=== PATIENT | male | born 1945 | race Caucasian/White ===

== ENCOUNTER 2016-09-28 05:54 | Observation (INO) | payer MEDICARE ==
[~2016-09-28] VITALS: Ht 180.3 cm; Wt 104.1 kg
--- NOTE | ~2016-09-28 | OR ---
PATIENT'S NAME: DAVID ROMAN [facility] AGE: 71 Y [address] ROOM: [address] [address] LOCATION: [facility] ADMIT DATE: 09/28/2016 OR/Procedure Report DISCHARGE DATE: 09/30/2016 FAMILY PHYSICIAN: Mildred Espino ATTENDING PHYSICIAN: Araseli Pino SURGEON: Araseli Pino MD CUSTOMER CARE CONSULTANT: Janell Ruiz CST DATE OF PROCEDURE: 09/28/2016 PREOPERATIVE DIAGNOSIS: Lumbar spinal stenosis. POSTOPERATIVE DIAGNOSIS: Lumbar spinal stenosis. PROCEDURES PERFORMED: 1. Bilateral laminectomy with decompression of neural elements and foraminotomy without diskectomy at L1-2 level. 2. Use of operative microscope. ANESTHESIA: General. ANESTHESIA PROVIDER: Fernando Marti MD HISTORY: The patient is a 71-year-old gentleman who presented with severe back pain and difficulty walking. His symptoms had progressed in the last couple of months. Lumbar spine MRI showed severe spinal stenosis at the L1-2 level. Surgery was recommended. The patient had had prior back surgeries, most recently in 2014. His symptoms improved after that surgery, but recurred with this new stenosis. The procedure above, the benefits, and risks were discussed with the patient. With his consent, he was brought to the operating room for surgery. PROCEDURE IN DETAIL: In the operating room, the patient was placed in the supine position. Anesthesia was induced. He was intubated. The patient was rolled to a supine position on the Luigi table, taking care to protect all pressure points. The incision was marked out. The whole area was prepped and draped in a sterile fashion. Local anesthesia was infiltrated. The #10 blade was used to open the incision, and self-retaining retractors were inserted. The Bovie was used to open the fascia and to dissect the incision to the tips of the spinous processes. I knew that the last intact spinous process was the L1 spinous process. Having identified the spinous process, the paraspinous muscles were dissected off both sides of the it all the way down to the lamina. The L2 spinous process was missing, but it seemed like some of the lamina had regrown, thereby contributing to the stenosis. Intraoperative x-ray was obtained to confirm our levels. The microscope was [facility] AGE: 71 Y [address] ROOM: [address] [place], [place] [address] LOCATION: [facility] ADMIT DATE: 09/28/2016 OR/Procedure Report DISCHARGE DATE: 09/30/2016 FAMILY PHYSICIAN: Mildred Espino ATTENDING PHYSICIAN: Araseli Pino brought in at this point, and under microscopic vision, the L1-2 area was re- explored. The stenosis was quite severe. The rongeur was used to rongeur off the spinous process and lamina of L1. Working very carefully, the dura was exposed. We then worked from the intact dura to the scar tissue from a previous surgery. It was possible to remove some of the scar tissue and continue the laminectomy until the nerve roots became visible. The Kerrison rongeur was used to remove the medial facets and to carry out foraminotomies for the nerve roots bilaterally. The disk was visualized, but it was not bulging enough to require a diskectomy. At the end of the decompression, the patient's dural sac had re-expanded. Some of the scar tissue was removed as mentioned earlier. Bone wax was used to wax the laminectomy edges thoroughly. Epidural venous bleeding was controlled with Fibrillar. It was not possible to get bone-dry hemostasis, and the drain was left in the epidural space. The drain was brought out through a separate stab wound from the side of the incision. Irrigation was used to wash out the debris, and the incision was closed in layers using appropriate suture materials. A sterile dressing was applied. The patient was then rolled back to a supine position. His anesthesia was reversed. He was extubated and taken to the recovery room to complete his recovery. I was present at and performed every aspect of this procedure, assisted at some stages by operating room nurses. There were no apparent intraoperative complications. Swabs, needles, and instruments were all accounted for at the end of the case. The estimated blood loss was less than 200 mL, and there was no reason for blood transfusion. We expect the patient to benefit from this procedure. MD SAM GOODMAN/tio /[id number] CC: [id number] Pimentel d: 10/04/16 1402 t: 10/11/16 0809, OPERATIVE SUMMARY
--- NOTE | ~2016-09-28 | DS ---
PATIENT'S NAME: DAVID ROMAN [facility] AGE: 71 Y [address] ROOM: [address] [address] LOCATION: [facility] ADMIT DATE: 09/28/2016 Discharge Summary DISCHARGE DATE: 09/30/2016 FAMILY PHYSICIAN: Mildred Espino ATTENDING PHYSICIAN: Araseli Pino REASON FOR ADMISSION: The patient was a scheduled admission for an elective procedure. The patient presented with severe back pain, and imaging studies showed severe spinal stenosis at the L1-2 level. Lumbar laminectomy was, therefore, recommended for the patient. TREATMENT RENDERED: The patient was admitted to the hospital on the above date and taken to the operating room on the same day. He underwent laminectomy at L1 and L2. His surgery was uncomplicated. His postoperative course was uneventful. The patient's pain improved significantly, and he became much more ambulatory after the procedure. By the second day after surgery, i.e. September 30, the patient had met all the criteria for dismissal. His incision was healing well. The dressing was changed. His pain was controlled. The patient was discharged home on that day and will be followed up at my clinic in [place] in October. He will be seen by his primary care provider in 2 weeks' time for removal of sutures. FINAL DIAGNOSIS: Lumbar spinal stenosis, status post lumbar laminectomy. MD SAM GOODMAN/tio /[id number] d: 10/04/16 2317 t: 10/11/16 0812, DISCHARGE SUMMARY
[~2016-09-28 05:54] MED LIST: ASPIRIN LO-DOSE81 MG PO; CLARITIN10 MG PO; COLACE100 MG PO; COREG25 MG PO; CYMBALTA20 MG PO; DESYREL100 MG PO; DIFLUCAN150 MG PO; FLOMAX0.4 MG PO; IRON325 M1 PO; LASIX40 MG PO; LIPITOR80 MG PO; NEURONTIN600 MG PO; PERCOCET 5-3251 EACH PO; POTASSIUM CHLO20 ME2 PO; PRILOSEC20 MG PO; PRINIVIL OR ZES10 MG PO; RANEXA1000 MG PO; TESTOSTERO100 MG/1 M; VALIUM10 MG PO; VITAMIN B-1000 MCG/M SUB-Q; ZYLOPRIM100 MG PO
[2016-09-29 14:43] LABS: HEMOGLOBIN 9.8 g/dL (11.0-16.0)
== END 2016-09-30 12:40 | disposition disaster alternative care site (69) ==
LOC: GSDC 05:54 → G3N 05:54 → GSDC 06:00 → G3N 12:15 → GSDC 12:16 → G3N 09-30 12:40
PROVIDERS: ADMIT Neurological Surgery
PROC: 00NY0ZZ Release Lumbar Spinal Cord, Open Approach (ICD-10-PCS; principal; 2016-09-28)
DX: M48.06 Spinal stenosis, lumbar region (principal); M19.90 Unspecified osteoarthritis, unspecified site; K21.9 Gastro-esophageal reflux disease without esophagitis; F32.9 Major depressive disorder, single episode, unspecified; I25.10 Atherosclerotic heart disease of native coronary artery without angina pectoris; I50.9 Heart failure, unspecified; E78.00 Pure hypercholesterolemia, unspecified; I10 Essential (primary) hypertension; J45.909 Unspecified asthma, uncomplicated; G47.33 Obstructive sleep apnea (adult) (pediatric); L40.9 Psoriasis, unspecified; F17.210 Nicotine dependence, cigarettes, uncomplicated; G83.4 Cauda equina syndrome; Z98.890 Other specified postprocedural states; Z79.82 Long term (current) use of aspirin; Z79.899 Other long term (current) drug therapy
CPT/HCPCS: G0378; G8978; G8979; G8980; G8987; G8988; G8989; J0690; J1040; J2001; J2405; J3010; J7030; J7120